=== PATIENT | female | born 1945 | race Caucasian/White ===

== ENCOUNTER 2017-10-29 09:16 | Emergency (ER) | payer MEDICARE ==
[~2017-10-29] VITALS: Ht 172.7 cm; Wt 82.0 kg
[2017-10-29] MEDS ORDERED: CODE BLUE RESPONSE XX ONE (09:18)
[2017-10-29] MEDS ORDERED: EPINEPHRINE SYRINGE 0.1 MG/ML, 10ML ONE (09:19)
[2017-10-29] MEDS ORDERED: SODIUM BICARB 8.4%, 50ML SYRINGE ONE (09:19)
== END 2017-10-29 12:15 | disposition expired ==
LOC: ED 09:53
DX: I46.9 Cardiac arrest, cause unspecified (principal)
CPT/HCPCS: 92950; 99285